=== PATIENT | male | born 1990 | race Caucasian/White ===

== ENCOUNTER 2016-12-08 00:20 | Emergency (ER) | payer OTHER ==
--- NOTE | 2016-12-08 00:24 | PDOC ---
History of Present Illness - General Chief Complaint: Urinary Problem Stated Complaint: URINARY PROBLEM Time Seen by Provider: 12/08/16 00:23 History Source: Patient Exam Limitations: No Limitations - History of Present Illness Initial Comments: 12/08/16 00:39 This is a 26-year-old male who comes in complaining of 2 days of progressive right lower quadrant abdominal pain. Patient is also having some associated mild nausea and anorexia. Patient in addition to that says it the pain radiates to his groin area and sometimes is been having some burning on urination as well. Patient is sexually active and does use protection. Patient denies any penile discharge or lesions of his penis. Patient denies any vomiting or diarrhea. PAST MEDICAL HISTORY: no significant history PAST SURGICAL HISTORY: no significant history FAMILY HISTORY: no pertinant history SOCIAL HISTORY: Pt lives with family and is employed. MEDICATIONS: reviewed ALLERGIES: As per nursing notes Review of Systems General: No fevers or chills, no weakness, no weight loss HEENT: No change in vision. No sore throat,. No ear pain CardioVascular: No chest pain or shortness of breath Respiratory:No cough, or wheezing. Gastrointestinal: + Abdominal pain, no nausea, vomitting, diarrhea or constipation, No rectal bleeding Genitourinary: + dysuria, no hematuria, or frequency Musculoskeletal: No joint or muscle pain or swelling Neurologic: No headache, vertigo, dizziness or loss of consciousness Psychiatric: nor depression Skin: No rashes or easy bruising Endocrine: no increased thirst or abnormal weight change Allergic: no skin or latex allergy All other systems reviewed and normal Exam: General: Well-nourished well-developed individual, no acute distress HEENT: Throat: Normal, tonsils normal, no erythema or exudate Neck: Supple, no meningeal signs, no lymphadenopathy Eyes::Pupils equal reactive and round, extraocular motion intact Chest: Nontender to palpation Cardiac: S1-S2 normal, regular rate and rhythm, no murmurs rubs or gallops Respiratory: Lungs clear to auscultation bilateral Abdomen: Soft, nondistended, normal bowel sounds, moderately tender to palpation right lower quadrant, no guarding or rebound. Extremities: Warm, dry, no cyanosis, clubbing, or edema Skin: No rashes Neuro: Alert and oriented x3, nonfocal exam, grossly intact, normal gait Psych: Normal mood and affect. CT scan negative for any acute intra-abdominal pathology Assessment and plan: This is a 26-year-old male who comes in complaining of abdominal pain and dysuria. Patient had a workup that was negative including urine was negative and blood work that was normal with the exception of a mildly elevated white count but no left shift. Patient had a CAT scan that was negative and discharged home. Patient had a GC chlamydia culture that was sent however he was not treating the fact that he had no urinary symptoms and was told that if the culture is positive he will need to come back and get treated. Past History - Past Medical History Allergies/Adverse Reactions: Allergies Allergy/AdvReac Type Severity Reaction Status Date / Time Sulfa (Sulfonamide Allergy Verified 12/08/16 00:21 Antibiotics) Home Medications: Ambulatory Orders NK [No Known Home Medication] 12/08/16 ED Treatment Course - LABORATORY CBC & Chemistry Diagram: 12/08/16 00:44 12/08/16 00:44 *DC/Admit/Observation/Transfer Diagnosis at time of Disposition: Abdominal pain - Discharge Dispostion Disposition: HOME Condition at time of disposition: Stable - Patient Instructions Additional Instructions: Take Tylenol or Motrin as needed for pain Return to the emergency department immediately with ANY new, persistent or worsening symptoms. Continue any medications as previously prescribed by your physician. You should follow up with your primary doctor as soon as possible regarding today's emergency department visit. . Please make sure your doctor reviews the results of your emergency evaluation. Thank you for coming to the Emergency Department today for your care. It was a pleasure to see you today. Please note that your evaluation is INCOMPLETE until you follow-up with your doctor.
[2016-12-08 00:31] VITALS: BP 145/91; PULSE 102; TEMP 98.2; BMI 32.6
[2016-12-08] MEDS ORDERED: SODIUM CHLORIDE 1,000 ML IV ONE (00:42)
[2016-12-08 01:41] LABS: BASOPHIL 0.4 % (0-2.0); MCH 29.4 pg (25.7-33.7); MCHC 33.8 g/dl (32.0-35.9); MEAN CELL VOLUME 86.9 fl (80-96); MEAN PLT VOLUME 9.4 fl (7.5-11.1); NEUTROPHILS 61.6 % (42.8-82.8); PLATELET COUNT 261 K/MM3 (134-434); RDW 12.8 % (11.9-15.9); WHITE BLOOD COUNT 10.3 K/mm3 (4.0-10.0)
[2016-12-08 01:42] LABS: URINE APPEARANCE CLEAR; URINE BILIRUBIN NEGATIVE (NEGATIVE); URINE BLOOD NEGATIVE (NEGATIVE); URINE COLOR AMBER; URINE GLUCOSE (UA) NEGATIVE (NEGATIVE); URINE KETONE NEGATIVE (NEGATIVE); URINE LEUK ESTERASE NEGATIVE (NEGATIVE); URINE NITRITE POSITIVE (NEGATIVE); URINE PROTEIN NEGATIVE (NEGATIVE); URINE UROBILINOGEN 2.0 E.U/dl E.U./dl (0.2-1.0)
[2016-12-08 01:53] LABS: URINE RBC 1 /hpf (0-3)
[2016-12-08 04:36] LABS: ALBUMIN 4.4 g/dl (3.4-5.0); ALK PHOS 115 U/L (45-117); ANION GAP 12 (8-16); BILIRUBIN,TOTAL 0.6 mg/dL (0.2-1.0); CALCIUM 8.8 mg/dL (8.5-10.1); CO2 25 mmol/L (21-32); CREATININE 0.8 mg/dL (0.7-1.3); SGOT/AST 28 U/L (15-37); SGPT/ALT 60 U/L (12-78); TOT PROT 7.5 g/dl (6.4-8.2)
[2016-12-08 04:38] LABS: GLUCOSE,RANDOM 92 mg/dL (74-106)
== END 2016-12-08 02:15 | disposition home or self-care (01) ==
LOC: FER 00:20
PROC: 3E0337Z Introduction of Electrolytic and Water Balance Substance into Peripheral Vein, Percutaneous Approach (ICD-10-PCS; principal; 2016-12-08)
DX: R10.84 Generalized abdominal pain (principal)
CPT/HCPCS: 36415; 74176-TC; 80053; 81003; 81015; 85025; 87491; 87591; 99282-25